=== PATIENT | female | born 1980 | race Caucasian/White ===

== ENCOUNTER 2023-02-25 15:59 | Outpatient (CLI) | payer BC, SELFPAY | END 2023-02-25 16:00 | disposition home or self-care (01) | PROVIDERS: PCP Family Medicine; Visit Provider Registered Nurse | DX: Z01.419 Encounter for gynecological examination (general) (routine) without abnormal findings (principal); Z13.6 Encounter for screening for cardiovascular disorders; Z13.1 Encounter for screening for diabetes mellitus | CPT/HCPCS: 80061; 82947 ==

== ENCOUNTER 2023-04-05 13:21 | Outpatient (CLI) | payer BC, SELFPAY ==
--- NOTE | 2023-04-05 13:40 | CRLHL7_ITS ---
For Patients: As a result of the Cures Act, medical imaging exams and procedure reports are released immediately into your electronic medical record. You may view this report before your referring provider. If you have questions, please contact your health care provider. BILATERAL DIGITAL SCREENING MAMMOGRAM WITH COMPUTER-AIDED DETECTION CLINICAL HISTORY: Routine screening exam. COMPARISON: None, baseline. TECHNIQUE: Digital mammogram in CC and MLO projections including computer-aided detection (CAD). BREAST COMPOSITION: The breasts are heterogeneously dense, which may obscure small masses. FINDINGS: RIGHT Breast: No suspicious findings. LEFT Breast: Focal asymmetric density upper outer quadrant 5 cm from the nipple. IMPRESSION: LEFT breast asymmetry/mass. RECOMMENDATIONS: Additional mammographic views of the LEFT breast including 3D spot compression CC/MLO. LEFT breast ultrasound may also be required. BI-RADS Category 0: Incomplete: Need Additional Imaging Evaluation and/or Prior Mammograms for Comparison The [facility] will contact the patient for follow-up. A lay language report of this examination will be provided to the patient. Dictated by Matt Donis MD @ 04/06/2023 12:33:44 PM /Dictated by: Matt Donis MD @ 04/06/2023 12:33:00 PM (Electronically Signed)
== END 2023-04-05 13:22 | disposition home or self-care (01) ==
LOC: MAMMO 13:21
PROVIDERS: PCP Family Medicine; Visit Provider Registered Nurse
DX: Z12.31 Encounter for screening mammogram for malignant neoplasm of breast (principal); R92.2 Inconclusive mammogram; N63.20 Unspecified lump in the left breast, unspecified quadrant
CPT/HCPCS: 77063; 77067

== ENCOUNTER 2023-04-26 08:29 | Outpatient (CLI) | payer BC, SELFPAY ==
--- NOTE | 2023-04-26 08:45 | CRLHL7_ITS ---
For Patients: As a result of the Cures Act, medical imaging exams and procedure reports are released immediately into your electronic medical record. You may view this report before your referring provider. If you have questions, please contact your health care provider. DIGITAL DIAGNOSTIC LEFT MAMMOGRAM USING TOMOSYNTHESIS AND COMPUTER-AIDED DETECTION LEFT BREAST ULTRASOUND CLINICAL HISTORY: LEFT breast mass/asymmetry. COMPARISON: 04/05/2023. TECHNIQUE: Digital LEFT mammogram in two projections. Tomosynthesis and CAD utilized. Real-time ultrasound imaging of LEFT breast with imaging documentation. BREAST COMPOSITION: The breast is heterogeneously dense, which may obscure small masses. FINDINGS: 3D spot compression CC/MLO LEFT breast mammogram images submitted. Decreased conspicuity of asymmetric density. No architectural distortion or suspicious calcifications. No adenopathy. Targeted LEFT breast ultrasound performed 11-12 o`clock 5 cm from the nipple performed. Normal fibroglandular tissue. No fibrocystic change or mass. IMPRESSION: No evidence of malignancy. RECOMMENDATIONS: Annual BILATERAL screening mammography. Results and recommendations discussed with the patient. BI-RADS Category 2: Benign A lay language report of this examination will be provided to the patient. Dictated by Matt Donis MD @ 04/26/2023 9:31:27 AM jj/Dictated by: Matt Donis MD @ 04/26/2023 9:31:00 AM (Electronically Signed)
--- NOTE | 2023-04-26 09:15 | CRLHL7_ITS ---
For Patients: As a result of the Cures Act, medical imaging exams and procedure reports are released immediately into your electronic medical record. You may view this report before your referring provider. If you have questions, please contact your health care provider. PLEASE SEE DIGITAL DIAGNOSTIC LEFT MAMMOGRAM PERFORMED SAME DAY CRL:[email or web address] [email or web address]/Dictated by: Matt Donis MD @ 04/26/2023 9:31:00 AM (Electronically Signed)
== END 2023-04-26 08:30 | disposition home or self-care (01) ==
LOC: MAMMO 08:30
PROVIDERS: PCP Family Medicine; Visit Provider Registered Nurse
DX: N63.20 Unspecified lump in the left breast, unspecified quadrant (principal); R92.8 Other abnormal and inconclusive findings on diagnostic imaging of breast
CPT/HCPCS: 76642; 77065; G0279

== ENCOUNTER 2024-04-05 13:50 | Outpatient (CLI) | payer BC, SELFPAY ==
--- OUTSIDE RECORDS SUMMARY | 2024-04-05 13:55 | XMS_ITS ---
Author Organization [facility] Address [address] [place] [address] Care Team Providers Care Home Health Travel Pt Name Role Phone Unavailable Unavailable Unavailable Surgery Details Not on file Complications Check Surgery Details section. Procedure Estimated Blood Loss Check Surgery Details section. Procedure Findings Check Surgery Details section. Procedure Specimens Taken Check Surgery Details section.
--- OUTSIDE RECORDS SUMMARY | 2024-04-05 13:55 | XMS_ITS | Clinical Summary ---
Author Organization [facility] Address [address] [place] [address] Care Team Providers Care Final Touch Up Painter Name Role Phone Elsewhere, Pcp Primary Care Provider Unavailabl e Source Comments Patient records contain information from all sites at [facility]. For routine questions regarding patient records, call [phone] during business hours, M-F 8:00 AM - 5:00 PM Central Time. Record requests for emergency care only can be directed to [phone] at any time.[facility] Allergies No known active allergies Medications * This document contains information received from the source organization and may not represent a complete record from that organization. naproxen (NAPROSYN) 250 mg tablet Take 250 mg by mouth as needed. 7 Active rizatriptan (MAXALT) 10 mg tablet Take 1 tablet (10 mg total) by mouth 2 (two) times a day as needed (for severe headache). Limit: 9 days/month. 12 tablet 3 3 Active promethazine (PHENERGAN) 25 mg tablet Take 1 tablet (25 mg total) by mouth every 6 (six) hours as needed for nausea (or rescue therapy for severe headache). Limit: 9 days/month. 30 tablet 3 3 Active ondansetron ODT (ZOFRAN-ODT) 8 mg disintegrating tablet Dissolve 1 tablet (8 mg total) in the mouth every 8 (eight) hours as needed for nausea or vomiting. 20 tablet 3 Active hydrOXYzine (ATARAX) 25 mg tablet Take 25-50 mg by mouth 3 (three) times a day as needed for anxiety. 4 Active Active Problems Problem Noted Date Diagnosed Date Tympanoplasty Status Post 01/27/2021 Encounters Date Type Department Care Team Description 04/03/2024 8:15 AM CDT Clinical Communication Virtual Review in [place], [place] [address] [place] [address] Pre-visit Intake 02/08/2024 Documentation Department of Neurology in [place], [place] [address] [place] [address] Romy Ramos from Last 3 Months Family History Medical History Relation Name Comments Depression Brother Kieran Li Hypertension Father George Li Coronary artery disease Maternal Grandfather Blane Burger dbshayy Lymphoma Maternal Grandmother Mindy Waggoner Breast cancer Paternal Grandmother Yarelis Li Relation Name Status Comments Brother Kieran Li Father George Li Maternal Grandfather Blane Waggoner Maternal Grandmother Mindy Waggoner Paternal Grandmother Yarelis Li Social History Tobacco Use Types Packs/Day Years Used Date Smoking Tobacco: Never Passive Smoke Exposure: Past Smokeless Tobacco: Never Tobacco Cessation:Counseling Given: Not Answered Alcohol Use Standard Drinks/Week Comments Yes 1 (1 standard drink = 0.6 oz pur e alcohol) [facility] Utilities Answer Date Recorded In the past 12 months has [facility] [employer], gas, oil, or water [employer] threatened to shut off services in your home? No 06/23/2023 Humiliation, Afraid, Rape, and Kick questionnair e Answer Date Recorded Within the last year, have y ou been afraid of your partner or ex-partner? No 03/29/2022 Within the last year, have y ou been humiliated or emotionally abused in other ways by your partner or ex-partner? No Within the last year, have y ou been kicked, hit, slapped, or otherwise physically hurt by your partner or ex-partner? No 03/29/2022 Within the last year, have y ou been raped or forced to have any kind of sexual activity by your partner or ex-partner? No 03/29/2022 Social Connection and Isolat ion Panel [NHANES] Answer Date Recorded In a typical week, how many times do you talk on the phone with family, friends, or neighbors? Once a week 03/29/2022 How often do you get togethe r with friends or relatives? Twice a week 03/29/2022 How often do you attend chur ch or scientology services? More than 4 times per year 03/29/2022 Do you belong to any clubs o r organizations such as mandaeism groups, unions, fraternal or athletic groups, or school groups? Yes 03/29/2022 How often do you attend meet ings of the clubs or organizations you belong to? More than 4 times per year 03/29/2022 Are you , , di vorced, , never , or living with a partner? Never 03/29/2022 AUDIT-C Answer Date Recorded Q1: How often do you have a drink containing alc ohol? 2-4 times a month 03/29/2022 Q2: How many drinks containi ng alcohol do you have on a typical day when you are drinking? 1 or 2 03/29/2022 Q3: How often do you have si x or more drinks on one occasion? Never 03/29/2022 Overall Financial Resource Strain (CARDIA) Answe r Date Recorded How hard is it for you to pa y for the very basics like food, housing, medical care, and heating? Not hard at all 03/29/2022 PHQ-2 Answer Date Recorded PHQ-2 Score 0 10/04/2023 [facility] - Occupational Stress Questionnaire Answer Date Recorded Do you feel stress - tense, restless, nervous, or anxious, or unable to sleep at night because your mind is troubled all the time - these days? Only a little 03/29/2022 Exercise Vital Sign Answer Date Recorde d On average, how many days pe r week do you engage in moderate to strenuous exercise (like a brisk walk)? 3 days 06/23/2023 On average, how many minutes do you engage in exercise at this level? 20 min 06/23/2023 Hunger Vital Sign Answer Date Recorded Within the past 12 months, y ou worried that your food would run out before you got the money to buy more. Never true 06/23/19 24 Within the past 12 months, t he food you bought just didn't last and you didn't have money to get more. Never true 06/23/2023 PRAPARE - Transportation Answer Date Re corded In the past 12 months, has l ack of transportation kept you from medical appointments or from getting medications? No 06/13 In the past 12 months, has l ack of transportation kept you from meetings, work, or from getting things needed for daily living? No 06/23/2023 Depression Answer Date Recor ded PHQ-9 Total Score (max 27) 2 10/03 Nutrition Answer Date Recorded On average, how many serving s of fruits and vegetables do you eat per day (serving size is equal to 1 cup or approximately the size of a tennis ball)? 3-5 06/23/2023 Dental Answer Date Recorded Dental: Regular Dentist Yes 03/29/20 Employment Answer Date Recorded Employment status Employed and actively working without restrictions 06/23/2023 Housing Stability Answer Date Recorded What is your living situation today? I have a [facility] place to live 06/23/2023 Education Answer Date Recorded What is the highest level of school you have completed or the highest degree you have received? 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 Gender Identity Female 01/25/2021 10:06 PM CDT Sexual Orientation Straight 01/25/2021 10 :06 PM CDT Last Filed Vital Signs Vital Sign Reading Time Taken Comments Blood Pressure 99/67 10/04/2023 4:04 PM CDT Pulse 66 10/04/2023 4:04 PM CDT Temperature - - Respiratory Rate 16 02/05/2015 5:00 PM CDT Oxygen Saturation - - Inhaled Oxygen Concentration - - Weight 65 kg (143 lb 4.8 oz) 10/04/2023 4:04 PM CDT Height 173 cm (5' 8.11) 10/04/2023 4:04 PM CDT Body Mass Index 21.72 10/04/2023 4:04 PM CDT Plan of Treatment Upcoming Encounters Date Type Department Care Team (Late st Contact Info) Description 04/06/2024 3:30 PM CDT Office Visit Department of Neurology in [place], [place] [address] [place] [address] Esa Ernandez M.D. [address] [place] [address] Health Maintenance Due Date Last Done Comments Hepatitis C Screening 1979 Lipid (Cholesterol) Screening 1979 Mammogram 1979 Cervical Cancer Screening 02/25/2026 02/25/2023 DTaP,Tdap,and Td Vaccines (6 - Td or Tdap) 02/25/2033 02/25/2023, 07/05/2011, 01/24/1985, Additional history exists Hepatitis B Vaccines Completed 09/04/2013, 09/01/2011, 07/05/2011 Depression Screening (Annual PHQ-2) Completed 10/04/2023 COVID-19 Vaccine Completed 03/22/2024, , 05/28/2021, Additional history exists Influenza Vaccine Completed 03/22/2024, 06/27/2023 HPV Vaccines Aged Out No longer eligi ble based on patient's age to complete this topic Pneumococcal vaccine (0-64 years) Aged Out No longer eligible based on patient's age to complete this topic Insurance [facility] Care Teams Final Touch Up Painter Relationship Specialty Start Date End Date Elsewhere, Pcp PCP - General Internal Medicine 04/03/24
--- OUTSIDE RECORDS SUMMARY | 2024-04-05 13:55 | XMS_ITS | Referral Summary ---
Author Organization [facility] Address [address] [place] [address] Care Team Providers Care Valance Cutter Name Role Phone Elsewhere, Pcp Primary Care Provider Unavailabl e Source Comments Patient records contain information from all sites at [facility]. For routine questions regarding patient records, call [phone] during business hours, M-F 8:00 AM - 5:00 PM Central Time. Record requests for emergency care only can be directed to [phone] at any time.[facility] Encounters Date Type Department Care Team Description 04/03/2024 8:15 AM CDT Clinical Communication Virtual Review in [place], [place] [address] [place] [address] Pre-visit Intake 02/08/2024 Documentation Department of Neurology in [address] [address] Romy Ramos from Last 3 Months Allergies No known active allergies Medications * [...] Date Diagnosed Date Tympanoplasty Status Post 01/27/2021 Social History Tobacco Use Types Packs/Day Years Used Date Smoking Tobacco: Never Passive Smoke Exposure: Past Smokeless Tobacco: Never Tobacco Cessation:Counseling Given: Not Answered Alcohol Use Standard Drinks/Week Comments Yes 1 (1 standard drink = 0.6 oz pur e alcohol) [facility] [employer] Answer Date Recorded In the past 12 months has e [employer], gas, oil, or water [employer] threatened to shut off services in your [...] week 03/29/2022 How often do you attend [facility] or protestant services? More than 4 times per year 03/29/2022 Do you belong to any clubs o r organizations such as voodoo groups, unions, fraternal or athletic groups, or [...] Answer Date Recorded PHQ-2 Score 0 10/04/2023 [facility] - Occupational Stress Questionnaire Answer Date Recorded [...] your living situation today? I have a [facility] place to live 06/23/2023 Education Answer Date Recorded What is the highest level of school you have completed or the highest degree you have received? 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 [address] [place] [phone] Insurance [facility] Care Teams Valance Cutter Relationship Specialty Start Date End Date Elsewhere, Pcp PCP - General Internal Medicine 04/03/24
--- OUTSIDE RECORDS SUMMARY | 2024-04-05 13:55 | XMS_ITS | Clinical Summary ---
Author Organization [facility] Address [place], [place] [address] Care Team Providers Care Aircraft Engine Mechanic Overhaul Name Role Phone Pcp, No Primary Care Provider Unavailabl e Allergies No known active allergies Medications No known medications Active Problems Problem Noted Date Diagnosed Date Perforated ear drum 07/26/2009 Immunizations Name Administration Dates Next Due DTaP 01/24/1985,04/22/1982,06/25/1981 HepA-HepB (Twinrix) 09/01/2011,07/05/2011 Hepatitis B (Adult) 09/04/2013 MMR 11/01/1991,03/26/1981 Polio Virus, Unspecified 01/24/1985,06/25/1981 Tdap 07/05/2011 Typhoid (injectable) 07/05/2011 Family History Medical History Relation Name Comments Cancer-breast Maternal Grandmother young Cancer-breast Paternal Grandmother post m enopausal Relation Name Status Comments Maternal Grandmother Paternal Grandmother Social History Tobacco Use Types Packs/Day Years Used Date Smoking Tobacco: Never Smokeless Tobacco: Never Tobacco Cessation:Counseling Given: Yes Alcohol Use Standard Drinks/Week Comments Yes 0 (1 standard drink = 0.6 oz pur e alcohol) occasionally PHQ-2 Answer Date Recorded PHQ-2 Score 0 04/09/2019 Sex and Gender Information Value Date Recorded Sex Assigned at Not on file Gender Identity Not on file Sexual Orientation Not on file Obstetrics History Last Filed Vital Signs Vital Sign Reading Time Taken Comments Blood Pressure 106/69 04/09/2019 10:18 AM CDT Pulse 55 04/09/2019 10:18 AM CDT Temperature 36.3 ??C (97.4 ??F) 10/14/2015 1 0:40 AM CDT Respiratory Rate 12 04/14/2011 2:24 PM CDT Oxygen Saturation 100% 04/09/2019 10: 18 AM CDT Inhaled Oxygen Concentration - - Weight 66.1 kg (145 lb 12.8 oz) 019 10:18 AM CDT Height 172.3 cm (5' 7.84) 04/09/2019 1 0:18 AM CDT Body Mass Index 22.28 04/09/2019 10:18 AM CDT Plan of Treatment Health Maintenance Due Date Last Done Comments HIV for age 15-65 12/05/1994 Hepatitis C screening for ag e 18-79 12/05/1997 BMI (ht and wt on same day) for age 18+ 04/09/2020 04/09/2019, 10/14/2015 Depression screening for age 12+ 04/09/2020 04/09/2019, 10/14/2015 Tetanus booster 07/05/2021 07/05/2011, 07/05/2011 COVID-19 vaccine series ( season) 2024 05/28/2021, 10/07/2020, 09/16/2020 Influenza for age 9-49 02/12/2024 Pap test for age 21-65 02/25/2026 , 02/25/2023, 12/15/2010 Tdap Completed 07/05/2011 Pneumococcal series for age 6-64 Aged Out No longer eligible b ased on patient's age to complete this topic Procedures Procedure Name Priority Date/Time Associated Diagnosis Comments HPV HIGH RISK Routine 02/25/2023 12:00 PM CDT from Last 3 Months or Most Recently Relevant to Health Maintenance Results * HPV HIGH RISK (02/25/2023 12:00 PM CDT) TYPE 16 Negative Negative 03/03/2023 11:20 AM CDT [facility] TYPE 18 Negative Negative 03/03/2023 11:20 AM CDT [facility] OTHER HIGH RISK TYPES Negative Negative 03/03/2023 11:20 AM CDT [facility] Other (Cervical) 02/25/2023 12:00 PM CDT 03/01/2023 2:51 PM CDT Narrative [facility] - 03/03/2023 11:20 AM CDT HPV types 16, 18, 31, 33, 35, 39, 45, 51, 52, 56, 58, 59, 66 and 68 DNA were undetectable or below the pre-set threshold. Methodology: Kj Kely 4800 HPV Test Pura Smith NP MICROBIOLOGY [facility] [address] [place] [id number], from Last 3 Months or Most Recently Relevant to Health Maintenance Care Teams Aircraft Engine Mechanic Overhaul Relationship Specialty Start Date End Date Pcp, No . PCP - General 01/05/11
--- OUTSIDE RECORDS SUMMARY | 2024-04-05 13:56 | XMS_ITS | Encounter Summary ---
Author Organization [facility] Address [address] [place] [address] Care Team Providers Care Metal Ceiling Builder Name Role Phone Elsewhere, Pcp Primary Care Provider Unavailabl e Reason for Visit * Reason Onset Date Comments Pre-visit Intake 04/03/2024 Encounter Details Date Type Department Care Team (Latest Contact Info) Description 04/03/2024 8:15 AM CDT Clinical Communication Virtual Review in [place], [place] [address] [place] [address] Pre-visit Intake Social History Tobacco Use Types Packs/Day Years Used Date Smoking Tobacco: Never Passive Smoke Exposure: Past Smokeless Tobacco: Never Tobacco Cessation:Counseling Given: Not Answered Alcohol Use Standard Drinks/Week Comments Yes 1 (1 standard drink = 0.6 oz pur e alcohol) [facility] Utilities Answer Date Recorded In the past 12 months has th e electric, gas, oil, or water company threatened to shut off services in your [...] often do you attend chur ch or buddhism services? More than 4 times per year 03/29/2022 Do you belong to any clubs o r organizations such as rastafari groups, unions, fraternal or athletic groups, or [...] Date Recorded PHQ-2 Score 0 10/04/2023 [facility] - Occupational Stress Questionnaire Answer Date Recorded [...] your living situation today? I have a [facility] place to live 06/23/2023 Education Answer Date Recorded What is the highest level of school you have completed or the highest degree you have received? 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 [address] [place] [phone] documented as of this encounter Visit Diagnoses Not on filedocumented in this encounter Additional Health Concerns Assessment Noted Time PHQ-9 Depression Total Score: 2 10/04/19 24 3:58 PM CDT documented as of this encounter Care Teams Metal Ceiling Builder Relationship Specialty Start Date End Date Elsewhere, Pcp PCP - General Internal Medicine 04/03/24 documented as of this encounter
--- OUTSIDE RECORDS SUMMARY | 2024-04-05 13:56 | XMS_ITS | Encounter Summary ---
Author Organization [facility] Address [address] [place] [address] Care Team Providers Care Roofing Tile Sorter Name Role Phone Unavailable Primary Care Provider Unavailabl e Encounter Details Date Type Department Care Team (Late st Contact Info) Description 02/08/2024 Documentation Department of Neurology in [place], [place] [address] [place] [address] Romy Ramos Social History Tobacco Use Types Packs/Day Years Used Date Smoking Tobacco: Never Smokeless Tobacco: Never Alcohol Use Standard Drinks/Week Comments Yes 1 (1 standard drink = 0.6 oz pur e alcohol) [facility] Utilities Answer Date Recorded In the past 12 months has e electric, gas, oil, or water company [...] 03/29/2022 How often do you attend chur or moravian services? More than 4 times per year 03/29/2022 Do you belong to any clubs o r organizations such as protestant groups, unions, fraternal or athletic groups, or [...] Answer Date Recorded PHQ-2 Score 0 10/04/2023 [facility] ional Health - Occupational Stress [...] your living situation today? I have a [facility] place to live 06/23/2023 Education Answer Date Recorded What is the highest level of school you have completed or the highest degree you have received? 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 [address] [place] [phone] documented as of this encounter Visit Diagnoses Not on filedocumented in this encounter Additional Health Concerns Assessment Noted Time PHQ-9 Depression Total Score: 2 10/04/19 24 3:58 PM CDT documented as of this encounter
--- NOTE | 2024-04-05 14:00 | CRLHL7_ITS ---
For Patients: As a result of the Century Cures Act, medical imaging exams and procedure reports are released immediately into your electronic medical record. You may view this report before your referring provider. If you have questions, please contact your health care provider. BILATERAL SCREENING MAMMOGRAM WITH COMPUTER-AIDED DETECTION AND TOMOSYNTHESIS TECHNIQUE: CC and MLO views were obtained. These mammographic images have been obtained using full-field digital technique. These mammographic images were interpreted with the benefit of computer-aided detection. Breast Tomosynthesis was used in this interpretation. COMPARISON FILM: 04/05/23, 04/26/23 (LT ONLY). FINDINGS: The breasts are extremely dense, which lowers the sensitivity of mammography IMPRESSION: There is no radiographic evidence for malignancy. ASSESSMENT: BI-RADS Category 1: Negative RECOMMENDATION: Routine screening mammogram in 1 year. A lay language report of this examination will be provided to the patient. Matt Donis M.D. Diagnostic Radiologist [email or web address] DIANNA/Dictated by: Matt Donis MD @ 04/06/2024 10:09:00 AM (Electronically Signed)
== END 2024-04-05 13:51 | disposition home or self-care (01) ==
LOC: MAMMO 13:51
PROVIDERS: PCP Family Medicine; Visit Provider Family Medicine
DX: Z12.31 Encounter for screening mammogram for malignant neoplasm of breast (principal); R92.343 Mammographic extreme density, bilateral breasts
CPT/HCPCS: 77063; 77067

== ENCOUNTER 2024-05-11 15:14 | Outpatient (CLI) | payer BC, SELFPAY ==
--- OUTSIDE RECORDS SUMMARY | 2024-05-11 15:16 | XMS_ITS | Encounter Summary ---
Author Organization [facility] Address [address] [place] [address] Care Team Providers Care Paraffin Plant Sweater Operator Name Role Phone Elsewhere, Pcp Primary Care Provider Unavailabl e Reason for Visit * Reason Onset Date Comments Pre-visit Intake 04/03/2024 Encounter Details Date Type Department Care Team (Latest Contact Info) Description 04/03/2024 8:15 AM CDT Clinical Communication Virtual Review in [place], [place] [address] [place] [address] Pre-visit Intake Social History Tobacco Use Types Packs/Day Years Used Date Smoking Tobacco: Never Passive Smoke Exposure: Past Smokeless Tobacco: Never Tobacco Cessation:Counseling Given: Not Answered Alcohol Use Standard Drinks/Week Comments Yes 1 (1 standard drink = 0.6 oz pur e alcohol) [facility] Utilities Answer Date Recorded In the past [...] often do you attend chur ch or yazdanism services? More than 4 times per year 03/29/2022 Do you belong to any clubs o r organizations such as orthodoxy groups, unions, fraternal or athletic groups, or [...] Recorded PHQ-2 Score 0 10/04/2023 [facility] - Occupational Stress Questionnaire Answer [...] your living situation today? I have a [facility] place to live 06/23/2023 Education Answer Date Recorded What is the highest level of school you have completed or the highest degree you have received? 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
--- OUTSIDE RECORDS SUMMARY | 2024-05-11 15:16 | XMS_ITS | Encounter Summary ---
Author Organization [facility] Address [address] [place] [address] Care Team Providers Care Flower Shop Laborer/Designer Name Role Phone Elsewhere, Pcp Primary Care Provider Unavailabl e Reason for Referral * Outpatient (Routine) - Authorized Specialty Diagnoses / Procedures Referred By Yesenia brennan Referred To Contact Neurology Esa Ernandez M.D. [address] [place] [phone] Phone: tel: fax: [facility] Referral ID Status Reason Start Date Expiration Date V isits Requested Visits Authorized [id number] Authorized 04/06/2024 10/06/2025 1 1 Reason for Visit * Outpatient (Routine) - Closed Specialty Diagnoses / Procedures Referred By Yesenia brennan Referred To Contact Neurology Esa Ernandez M.D. [address] [place] [phone] Phone: tel: fax: [facility] Referral ID Status Reason Start Date Expiration Date Visits Re quested Visits Authorized [id number] Closed 10/04/2023 04/04/2025 1 1 Encounter Details Date Type Department Care Team (Late st Contact Info) Description 04/06/2024 3:30 PM CDT Office Visit Department of Neurology in [place], [place] [address] [place] [phone] Eas Ernandez M.D. [address] [place] [phone] Chronic Migraine (Primary Dx) Social History Tobacco Use Types Packs/Day Years Used Date Smoking Tobacco: Never Passive Smoke Exposure: Past Smokeless Tobacco: Never Alcohol Use Standard Drinks/Week Comments Yes 1 (1 standard drink = 0.6 oz pur e alcohol) [facility] Utilities Answer Date Recorded In the past [...] week 03/29/2022 How often do you attend [facility] or gnosticism services? More than 4 times per year 03/29/2022 Do you belong to any clubs o r organizations such as mandaen groups, unions, fraternal or athletic groups, or [...] PHQ-2 Answer Date Recorded PHQ-2 Score 0 04/06/2024 [facility] - Occupational Stress [...] Recor ded PHQ-9 Total Score (max 27) 3 04/06 Nutrition Answer Date Recorded On average, how [...] your living situation today? I have a [facility] place to live 06/23/2023 Education Answer Date Recorded What is the highest level of school you have completed or the highest degree you have received? 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 - 04/06/2024 3:30 PM CDT SUBJECTIVE CHIEF COMPLAINT / REASON FOR VISIT: Ms. Li returns today for subsequent evaluation and assessment of the effectiveness of treatments suggested at her previous visit on 10/04/23. HISTORY OF PRESENT ILLNESS: Since her last visit she has been taking: none of the above oral medications; none of the above injectable medications When last seen in September she reported daily headaches on Topiramate. Ajovy was suggested. She has been doing vision therapy in the hope that it will help her dizziness. She is 12 weeks into it she is unclear. She has a migraine headache last week and it has been well aligned with her menstrual cycle. Preventative medications attempted: Amitriptyline, Topiramate Low blood pressures with a systolic reading of 99 precludes beta blockers or verapamil. Over the past 4 weeks, Ms. Li reports having had 5 headache days. The patient rates the severity and disability of average headaches as moderate, 2 out of 3 in severity. Headache intensity is rated 5 on a scale of 0-10. Over the past 3 months, she reports experiencing side effects of: none The MIDAS score today which reflects the past three months was (Patient-Rptd) 7. Over the past three months her average subjective pain severity scale was (0 - 10) (Patient-Rptd) 3. The following portions of the patient's history were reviewed and updated as appropriate: allergies, current medications, family history, medical history, social history, surgical history, and problem list. ASSESSMENT / PLAN DIAGNOSES: #1 Chronic Migraine without aura #2 Dizziness presumed to be migraine related dizziness Treatment Recommendations over the next few months: For further investigation of Ms. Li's headaches or comorbid disorders I am suggesting additional testing which includes: No testing ordered at this visit Recommended therapies for acute treatment of mild to moderate headache: Naprosyn and moderate to severe headache: Rizatriptan Preventative therapies recommended: None Ms. Li was given written instructions for the dosing and titration and the common side effects of these medications. I attempted to answer any questions that she had regarding her headaches andthe recommended treatment. Total time including >50% counselling time: 30 minutes documented in this encounter Plan of Treatment Scheduled Referrals Name Type Priority Associated Diagnoses Orde r Schedule Neurology office visit (clinic) Outpatient Referral Routine Expected: 10/05/2024, Expires: 07/07/2025 documented as of this encounter Visit Diagnoses Diagnosis Chronic Migraine- Primary documented in this encounter Additional Health Concerns Assessment Noted Time PHQ-9 Depression Total Score: 3 04/06/20 24 3:17 PM CDT documented as of this encounter Care Teams Flower Shop Laborer/Designer Relationship Specialty Start Date End Date Elsewhere, Pcp PCP - General Internal Medicine 04/03/24 04/19/24 documented as of this encounter
--- OUTSIDE RECORDS SUMMARY | 2024-05-11 15:16 | XMS_ITS | Encounter Summary ---
Author Organization [facility] Address [address] [place] [address] Care Team Providers Care Packing And Final Assembly Supervisor Name Role Phone Unavailable Primary Care Provider Unavailabl e Encounter Details Date Type Department Care Team (Late st Contact Info) Description 02/08/2024 Documentation Department of Neurology in [place], [place] [address] [place] [address] Romy Ramos Social History Tobacco Use Types Packs/Day Years Used Date Smoking Tobacco: Never Smokeless Tobacco: Never Alcohol Use Standard Drinks/Week Comments Yes 1 (1 standard drink = 0.6 oz pur e alcohol) [facility] Utilities Answer Date Recorded In the past [...] How often do you attend chur or oriental orthodox services? More than 4 times per year 03/29/2022 Do you belong to any clubs o r organizations such as restorationist groups, unions, fraternal or athletic groups, or [...] Answer Date Recorded PHQ-2 Score 0 10/04/2023 [facility] Occupat ional Health - [...] your living situation today? I have a [facility] place to live 06/23/2023 Education Answer Date Recorded What is the highest level of school you have completed or the highest degree you have received? 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
--- OUTSIDE RECORDS SUMMARY | 2024-05-11 15:16 | XMS_ITS | Referral Summary ---
Author Organization [facility] Address [address] [place] [address] Care Team Providers Care Adult Specialist Name Role Phone None Reported, Pcp Primary Care Provider Unavail able Source Comments Patient records contain information from all sites at [facility]. For routine questions regarding patient records, call [phone] during business hours, M-F 8:00 AM - 5:00 PM Central Time. Record requests for emergency care only can be directed to [phone] at any time.[facility] Encounters Date Type Department Care Team Description 04/06/2024 3:30 PM CDT Office Visit Department of Neurology in [address] [phone] Esa Ernandez M.D. Chronic Migraine (Primary Dx) 04/03/2024 8:15 AM CDT Clinical Communication Virtual Review in [address] [phone] Pre-visit Intake from Last 3 Months Allergies No known active allergies Medications * This document contains information received from the source organization and may not represent a complete record from that organization. promethazine (PHENERGAN) 25 mg tablet Take 1 tablet (25 mg total) by mouth every 6 (six) hours as needed for nausea (or rescue therapy for severe headache). Limit: 9 days/month. 30 tablet 3 3 Active hydrOXYzine (ATARAX) 25 mg tablet Take 25-50 mg by mouth 3 (three) times a day as needed for anxiety. 4 Active naproxen (Naprosyn) 500 mg tablet Take 1 tablet (500 mg total) by mouth as needed for headaches. 30 tablet 3 4 Active rizatriptan (Maxalt) 10 mg tablet Take 1 tablet (10 mg total) by mouth 2 (two) times a day as needed (for severe headache). Limit: 9 days/month. 12 tablet 3 4 Active ondansetron ODT (Zofran-ODT) 8 mg disintegrating tablet Dissolve 1 tablet (8 mg total) in the mouth every 8 (eight) hours as needed for nausea or vomiting. 20 tablet 4 Active Active Problems Problem Noted Date Diagnosed Date Tympanoplasty Status Post 01/27/2021 Social History Tobacco Use Types Packs/Day Years Used Date Smoking Tobacco: Never Passive Smoke Exposure: Past Smokeless Tobacco: Never Tobacco Cessation:Counseling Given: Not Answered Alcohol Use Standard Drinks/Week Comments Yes 1 (1 standard drink = 0.6 oz pur e alcohol) [facility] [employer] Answer Date Recorded In the past 12 months has [employer], [employer], oil, or water inContact threatened to shut off services in your [...] do you attend [facility] or faith services? More than 4 times per year 03/29/2022 Do you belong to any clubs o r organizations such as moravian groups, unions, fraternal or athletic groups, or [...] Answer Date Recorded PHQ-2 Score 0 04/06/2024 [facility] of Occupat ional Health - Occupational Stress [...] your living situation today? I have a [facility] place to live 06/23/2023 Education Answer Date Recorded What is the highest level of school you have completed or the highest degree you have received? Bachelor's degree (e.g., BA, AB, BS) 07/27/2019 Comments Unknown Sex and Gender Information Value Date Recorded Sex Assigned at Female 03/29/2022 9:49 PM CDT Legal Sex Female 12:00 PM INVESTMENT ADVISOR Gender Identity Female 01/25/2021 10:06 PM CDT [...] 10/04/2023 4:04 PM CDT Plan of Treatment Not on file Insurance [facility] Care Teams Adult Specialist Relationship Specialty Start Date End Date None Reported, Pcp PCP - General 04/20/24
--- OUTSIDE RECORDS SUMMARY | 2024-05-11 15:16 | XMS_ITS | Clinical Summary ---
Author Organization [email or web address] Address [place], [place] [address] Care Team Providers Care Leather Goods Ii Assembler Name Role Phone Pcp, No Primary Care [...] 54 04/09/2019 10:18 AM CDT Temperature 36.3 C (97.4 F) 10/14/2015 10:40 AM CDT Respiratory Rate 12 04/14/2011 2:24 [...] booster 07/05/2021 07/05/2011, 07/05/2011 COVID-19 vaccine series (2023- season) 2024 05/28/2021, 10/07/2020, 09/16/2020 Influenza for age 9-49 02/12/2024 Pap test for age 21-65 02/25/2026 3, 02/25/2023, 12/15/2010 Tdap Completed 07/05/2011 Pneumococcal series [...] 16 Negative Negative 03/03/2023 11:20 AM CDT [facility] TYPE 18 Negative Negative 03/03/2023 11:20 AM CDT [facility] OTHER HIGH RISK TYPES Negative Negative 03/03/2023 11:20 AM CDT [facility] Other (Cervical) 02/25/2023 12:00 PM CDT 03/01/2023 2:51 PM CDT Narrative [facility] - 03/03/2023 11:20 AM CDT HPV types 16, 18, 31, 33, 35, 39, 45, 51, 52, 56, 58, 59, 66 and 68 DNA were undetectable or below the pre-set threshold. Methodology: Kj Kely 4800 HPV Test Pura Smith NP [facility] [address] [place] [address], from Last 3 Months or Most Recently Relevant to Health Maintenance Care Teams Leather Goods Ii Assembler Relationship Specialty Start Date End Date Pcp, No . PCP - General 01/05/11
--- OUTSIDE RECORDS SUMMARY | 2024-05-11 15:16 | XMS_ITS ---
Author Organization [facility] Address [address] [place] [address] Care Team Providers Care Alteration Hand Name Role Phone Unavailable Unavailable Unavailable Surgery Details Not on file Complications Check Surgery Details section. Procedure Estimated Blood Loss Check Surgery Details section. Procedure Findings Check Surgery Details section. Procedure Specimens Taken Check Surgery Details section.
--- OUTSIDE RECORDS SUMMARY | 2024-05-11 15:16 | XMS_ITS | Clinical Summary ---
Author Organization [facility] Address [address] [place] [address] Care Team Providers Care Card Hanger Name Role Phone None Reported, Pcp Primary Care Provider Unavail able Source Comments Patient records contain information from all sites at [facility]. For routine questions regarding patient records, call [phone] during business hours, M-F 8:00 AM - 5:00 PM Central Time. Record requests for emergency care only can be directed to [phone] at any time.[facility] Allergies No known active allergies Medications * [...] needed for nausea or vomiting. 20 tablet Active Active Problems Problem Noted Date Diagnosed Date Tympanoplasty Status Post 01/27/2021 Encounters Date Type Department Care Team Description 04/06/2024 3:30 PM CDT Office Visit Department of Neurology in [place], [place] [address] [place] [address] Esa Ernandez M.D. Chronic Migraine (Primary Dx) 04/03/2024 8:15 AM CDT Clinical Communication Virtual Review in [place], [place] [address] [place] [address] Pre-visit Intake from Last 3 Months Family History Medical History Relation Name Comments Depression Brother Kieran Li Hypertension Father George Li Coronary artery disease Maternal Grandfather Blane briseno Lymphoma Maternal Grandmother Mindy Waggoner Breast cancer [...] drink = 0.6 oz pur e alcohol) [facility] Utilities Answer Date Recorded In the past 12 months has e electric, gas, oil, or water [employer] threatened to shut off services in your [...] often do you attend chur ch or sikh services? More than 4 times per year 03/29/2022 Do you belong to any clubs o r organizations such as sikhism groups, unions, fraternal or athletic groups, or [...] Answer Date Recorded PHQ-2 Score 0 04/06/2024 [facility] Questionnaire Answer Date [...] your living situation today? I have a [facility] place to live 06/23/2023 Education Answer Date Recorded What is the highest level of school you have completed or the highest degree you have received? 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
--- NOTE | 2024-05-11 15:30 | CRLHL7_ITS ---
For Patients: As a result of the Century Cures Act, medical imaging exams and procedure reports are released immediately into your electronic medical record. You may view this report before your referring provider. If you have questions, please contact your health care provider. INDICATION: Neck pain TECHNIQUE: Noncontrast sagittal T1, T2, STIR and axial GRE sequences are provided. No comparisons. FINDINGS: The overall stature, alignment and intrinsic marrow signal of the cervical spine is within normal limits. Atypical hemangioma within the C7 vertebral body. Cervical cord is normal. C2-3, C3-4, C4-5: Unremarkable. C5-6: Mild underlying disc osteophyte complex results in no significant central canal or foraminal narrowing. C6-7: Mild disc osteophyte complex with asymmetric uncovertebral joint and facet arthropathy results in moderate left and no right foraminal narrowing. Mild central canal narrowing. C7-T1: Unremarkable. IMPRESSION: 1. Mild central canal narrowing with moderate left foraminal narrowing at C6-7. Dictated by Abdiaziz Victor MD @ 05/11/2024 7:10:09 PM (Electronically Signed)
== END 2024-05-11 15:15 | disposition home or self-care (01) ==
LOC: MRI 15:14
PROVIDERS: PCP Family Medicine; Visit Provider Family Medicine
DX: M54.2 Cervicalgia (principal); M50.223 Other cervical disc displacement at C6-C7 level; M54.12 Radiculopathy, cervical region
CPT/HCPCS: 72141

== ENCOUNTER 2024-08-10 13:00 | Outpatient (RCR) | payer OTHER, SELFPAY | END 2024-12-08 23:59 | disposition home or self-care (01) | PROVIDERS: PCP Family Medicine; Visit Provider Family Medicine | DX: M54.2 Cervicalgia (principal); M54.50 Low back pain, unspecified; M54.12 Radiculopathy, cervical region; Z51.89 Encounter for other specified aftercare | CPT/HCPCS: 97012; 97110; 97140; 97161; 97535 ==

== ENCOUNTER 2025-02-22 07:46 | Outpatient (CLI) | payer OTHER, SELFPAY | END 2025-02-22 07:47 | disposition home or self-care (01) | LOC: NFLDREF 02-26 08:37 | PROVIDERS: PCP Family Medicine; Referring Provider Family Medicine; Visit Provider Family Medicine | DX: Z13.6 Encounter for screening for cardiovascular disorders (principal) | CPT/HCPCS: 80061 ==

== ENCOUNTER 2025-05-14 11:15 | Outpatient (CLI) | payer OTHER, SELFPAY ==
--- NOTE | 2025-05-14 11:30 | CRLHL7_ITS ---
For Patients: As a result of the Century Cures Act, medical imaging exams and procedure reports are released immediately into your electronic medical record. You may view this report before your referring provider. If you have questions, please contact your health care provider. INDICATION: BILATERAL SCREENING MAMMOGRAM, ASYMPTOMATIC 44 Y/O FEMALE COMPARISON: 04/05/2024, 04/26/2023, 04/05/2023 TECHNIQUE: Digital mammogram in CC and MLO projections including computer-aided detection (CAD) and tomosynthesis. BREAST COMPOSITION: The breasts are heterogeneously dense, which may obscure small masses. FINDINGS: No suspicious findings. ASSESSMENT: BI-RADS 1 Negative RECOMMENDATION: Annual screening mammogram. A lay language report of this examination will be provided to the patient. Dictated by: Matt Donis MD @ 05/14/2025 12:08:48 (Electronically Signed)
== END 2025-05-14 11:16 | disposition home or self-care (01) ==
LOC: MAMMO 11:15
PROVIDERS: PCP Family Medicine; Visit Provider Family Medicine
DX: Z12.31 Encounter for screening mammogram for malignant neoplasm of breast (principal); R92.333 Mammographic heterogeneous density, bilateral breasts
CPT/HCPCS: 77063; 77067